=== PATIENT | female | born 2005 | race Caucasian/White ===

== ENCOUNTER 2025-06-17 14:41 | Emergency (ER) | payer OTHER, SELFPAY ==
[2025-06-17 14:43] VITALS: BP 100/79; PULSE 77; RESP 18; TEMP 37.1; O2SAT 95
--- NOTE | 2025-06-17 15:05 | ED.VIS.LOWEX ---
HPI History of Present Illness HPI Narrative: Healthy 20-year-old female past medical history of anxiety no other medical problems. States she has had right knee pain and swelling for 2 weeks. Denies any fall or trauma. There is mild swelling. No fever or chills. No rash. No prior knee surgery. Chief Complaint: Lower Extremity Injury Informant: patient and spouse/S.O. Occured/Mechanism Mechanism/Context: No injury and No blunt trauma Onset/Context/Timing Onset: Weeks Context: Gradual Onset Timing: Continuous Quality of Pain: Dull and Aching Current Severity: Mild Maximum Severity: Mild Associated Symptoms Associated Symptoms: Negative for Parasthesia, Weakness or Loss of Funtion Narrative Narrative: 20-year-old female history of anxiety no other medical problems. Complains of atraumatic knee pain and swelling for 2 weeks. No fever or chills. No prior surgery or history of this. Prior similar symptoms: No Recent Illness/Hospitalization: No PFSH PFSH Medical History no medical history Family History no significant family his Surgical History no surgical history Social History Smoking Status: Never smoker ROS ROS ED ROS Narrative Knee pain. No recent illness. Constitutional Constitutional ED: Denies chills or fever(s) Eyes Eyes: Denies blurry vision ENT ENT ED: Denies ear pain Cardiovascular Cardiovascular: Denies chest pain Respiratory/Chest Respiratory/Chest: Denies cough or dyspnea Gastrointestinal Gastrointestinal: Denies abdominal pain Genitourinary Genitourinary ED: Denies dysuria or hematuria Musculoskeletal Musculoskeletal: Denies arthralgias Integumentary Denies abscess or Abrasions Neurologic Neurologic: Denies headache(s) Psychiatric Psychiatric: Denies depression Endocrine Endocrinology: Denies polydipsia or polyphagia Hematologic/Lymphatic Hematologic/Lymphatic: Denies easy bleeding, easy bruising or lymphadenopathy Allergic/Immunologic Allergic/Immunologic ED: Denies mouth swelling, tongue swelling or urticaria EXAM Physical Exam Narrative Exam Narrative: 20-year-old female sitting upright in bed no acute distress. Significant other at bedside. Vital signs are stable and afebrile. H EENT exam pupils are reactive light. Moist EXTR. Neck nontender JVD. No lymphadenopathy. Lungs clear to auscultation bilaterally. Heart regular rhythm no murmur rate about 75. Chest wall ribs nontender. Abdomen soft nontender. Moving all 4 extremities. Neurovascularly intact. Normal range of motion. Normal procurement specialist strength. Right hip ankle and foot nontender no swelling. Normal dorsi plantarflexion normal DP pulse. Normal strength. Right inguinal region has no lymphadenopathy. Right knee mildly swollen. No significant tenderness. Full flexion extension. No redness. Does appear to be an effusion. She can do full flexion extension of the knee. No bony deformity. No cellulitis. Does not appear to be a septic joint. Left knee is unremarkable. Neurologically she is awake alert. Answering questions following commands. Const Vital Signs: 06/17/25 14:43 Temperature 98.7 F Temperature Source Oral Pulse Rate 77 Respiratory Rate 18 Blood Pressure 100/79 Blood Pressure Mean 86 Pulse Ox 95 Oxygen Delivery Method Room Air MDM MDM MDM Narrative Medical decision making narrative: 20-year-old [facility] female with right knee pain and swelling atraumatic for the last 2 weeks. She does have an effusion. X-ray and labs will be obtained. Repeat exam at 6:15 PM patient doing well. She did allow me to do a knee joint aspiration. Her right knee was cleaned with iodine. Alcohol swabs. On the inferior aspect of her right knee inferior lateral to her kneecap I 1 in with a 21-gauge needle was able to remove about 6 cc of straw-colored fluid. There was no pus or blood. She tolerated it well. Area was then again cleaned and a Band-Aid was applied. History & Record Review Discussion w/independent historian: Patient and Family Additional record(s) reviewed:: No prior records Lab Data Attestation: I reviewed the patient's lab results. Lab results narrative: CBC white count is normal at 7. H&H 11.5 and 33. Platelets 267. Electrolytes show a sodium 139. Gap 12. Normal BUN and creatinine of 15 and 0.7. Glucose 102. Uric acid is normal at 4. C-reactive protein is elevated 6.9 . Sed rate is 22 Labs: Laboratory Results - last 24 hr 06/17/25 15:15 WBC 7.0 RBC 4.02 L Hgb 11.5 L Hct 33.1 L MCV 82.3 MCH 28.6 MCHC 34.7 RDW Std Deviation 47.6 H RDW Coeff of Sandra 15.8 H Plt Count 267 MPV 8.9 Immature Gran % (Auto) 0.300 Neut % (Auto) 54.1 Lymph % (Auto) 33.0 [place] % (Auto) 8.3 Eos % (Auto) 3.6 Baso % (Auto) 0.7 Absolute Neuts (auto) 3.8 Absolute Lymphs (auto) 2.30 Nucleated RBC % 0 ESR 22 Sodium 139 Potassium 4.0 Chloride 103 Carbon Dioxide 23.8 Anion Gap 12 BUN 15 Creatinine 0.79 Est GFR (MDRD) Non-Af 109 BUN/Creatinine Ratio 18.8 Glucose 102 H Uric Acid 4.0 Calcium 9.7 C-React Prot Ext Range 6.91 H Radiography Diagnostic Testing: Right knee x-ray, 4 views, interpreted by myself shows soft tissue swelling. Knee effusion. The bone looks very healthy. No fracture. No other acute abnormalities. Procedures Other Procedures Procedure(s): Right knee joint aspiration secondary to knee effusion. Cleaned with iodine and alcohol swabs. Inferior to the kneecap and lateral I used a 21-gauge needle and is able to aspirate about 6 cc of straw-colored joint fluid. No blood. No obvious pus. Patient tolerated well. Was cleaned and then band aid was applied. Discharge Plan Triage Chief Complaint: Lower Extremity Injury ED Provider: Osmel Calhoun Dx/Rx/DC Orders Clinical Impression: Effusion of knee joint right Instructions: ED Fluid on the Knee Referrals: Nasim Hammer MD [Med Staff - Active Staff, Orthopedics] - 1 Week if not improving Activity Restrictions/Additional Instructions: Ice and elevate your knee to decrease pain and swelling. Motrin 600 mg 3 times a day to decrease the pain and swelling. Tylenol for pain. Follow-up with your doctor if not improving. Return if you develop a fever, worsening swelling or worsening pain. If this is not getting better you may need an MRI of your knee to further evaluate the knee joint. Print Language: French Disposition Disposition: Home, Self Care Discharge Date/Time: 06/17/25 18:40
[2025-06-17 15:24] LABS: Hematocrit 33.1 % (37-47); Hemoglobin 11.5 g/dL (12.0-15.0); Immature Granulocytes Count 0.020 X10^3/uL (0.0-0.0); Mean Corp Hgb Conc 34.7 g/dL (32-36); Mean Corpuscular Volume 82.3 fL (81-99); Mean Platelet Vol. 8.9 fl (6.2-12.0); NRBC Flagged by Analyzer 0 % (0-5); Platelet Count 267 K/mm3 (150-450); RBC Distribution Width CV 15.8 % (11.6-14.6); RBC Distribution Width SD 47.6 fl (35.1-43.9); Red Blood Count 4.02 M/mm3 (4.2-5.4); White Blood Count 7.0 K/mm3 (4.4-11.0)
[2025-06-17 16:13] LABS: Anion Gap 12 (5-15); BUN 15 mg/dL (4-19); BUN/Creat Ratio 18.8 RATIO (10-20); CRP 6.91 mg/L (0.0-3.0); Calcium,Total 9.7 mg/dL (7.6-11.0); Carbon Dioxide 23.8 mmol/L (21.0-32.0); Chloride 103 mmol/L (98-108); Glucose 102 mg/dL (70-99); Potassium 4.0 mmol/L (3.3-5.1); Uric Acid 4.0 mg/dL (2.6-6.0)
--- NOTE | 2025-06-17 18:35 | RAD_ITS ---
PROCEDURE: KNEE 4 OR MORE VIEWS 06/17/2025 REASON FOR EXAM: ATRAUMATIC KNEE PAIN TECHNIQUE: Procedure Code: RADKN Modality: DX Procedure: KNEE 4 OR MORE VIEWS Laterality: Right COMPARISON: None FINDINGS: Bones: No demonstrated fracture Joints: Joint spaces well-preserved Effusion: No joint effusion Soft tissues: Unremarkable Other: RAD/Knee 4 or More Views IMPRESSION: Unremarkable right knee Reading Location: [id number]
[2025-06-17 21:12] LABS: AUTO B FLUID DILUENT BKGD CT WBC <0.1 RBC <0.01 (W<.1,R<.01); Source- Body Fluid SYNOVIAL
[2025-06-17 21:13] LABS: Appearance /Synovial Fluid Turbid (CLEAR); Color / Synovial Fluid Yellow (Pale Yellow); Source / Synovial Fluid RIGHT KNEE
[2025-06-17 21:14] LABS: Total Cell Count Synovial Fld 16.8900 10^3/uL (0.000-0.000); WBC / Synovial Fluid 16.6200 10^3/uL (0.000-0.002)
[2025-06-17 21:15] LABS: Synovial Fld Mononuclear WBC # 1.921 10^3/ul; Synovial Fld Mononuclear WBC % 12.6 %; Synovial Fld Polynuclear WBC # 13.307 10^3/uL; Synovial Fld Polynuclear WBC % 87.4 %
[2025-06-17 23:28] LABS: RBC /Synovial Fluid 434 /mm3 (0)
[2025-06-17 23:29] LABS: Body Fluid QC Type(s) BF1Q, BF2Q
[2025-06-17 23:47] LABS: Monocyte /Synovial Fluid 11 %
[2025-06-18 00:05] LABS: CRYSTALS, BODY FLUID NO CRYSTALS SEEN
== END 2025-06-17 18:40 | disposition home or self-care (01) ==
PROVIDERS: Emergency Provider Emergency Medicine; Visit Provider Emergency Medicine
DX: M25.461 Effusion, right knee (principal); M25.561 Pain in right knee
CPT/HCPCS: 20610; 73564; 80048; 84550; 85025; 85652; 86140; 87070; 87075; 87205; 89050; 89051; 89060; 99283; A4216